=== PATIENT | male | born 1995 ===

== ENCOUNTER 2019-02-13 15:05 | Emergency (ER) | payer SELFPAY ==
[~2019-02-13] VITALS: Ht 182.9 cm; Wt 75.0 kg
[2019-02-13 15:24] VITALS: TEMP 99.4
[2019-02-13 15:58] LABS: COLLECTION METHOD CLEAN CATCH
[2019-02-13 16:09] LABS: MUCOUS Present /lpf; PH 5 (5-8); SQUAMOUS EPITHELIAL 0-2 /hpf; URINE APPEARANCE Hazy; URINE BACTERIA None Seen /hpf; URINE BILIRUBIN Negative (NEGATIVE); URINE BLOOD 1+ (NEGATIVE); URINE COLOR Yellow; URINE GLUCOSE Negative (NEGATIVE); URINE KETONE Negative (NEGATIVE); URINE LEUKOCYTE ESTERASE 2+ (NEGATIVE); URINE NITRATE Negative (NEGATIVE); URINE PROTEIN(semi-quant) 1+ (NEGATIVE)
[2019-02-13 16:48] LABS: BASO % 0.3 % (0.0-2.0); EOS % 0.6 % (0-4.0); GRAN # 2.1 (1.4-6.5); GRAN % 59.3 % (42.2-75.2); HEMATOCRIT 43.9 % (42.0-52.0); HEMOGLOBIN 14.6 g/dl (13.5-18.0); LYMPH % 28.9 % (20.0-51.0); MEAN CELL VOLUME 91 fl (80.0-100.0); MEAN CORPUSCULAR HEMOGLOBIN 30 pg (27.0-31.0); MEAN CORPUSCULAR HGB CONC 33 g/dl (33.0-37.0); MEAN PLATELET VOLUME 9.7 fl (7.4-10.4); MONO # 0.4 (0.1-0.6); MONO % 10.9 % (1.7-9.3); PLATELET COUNT 172 K/mm3 (130-400); RED BLOOD COUNT 4.81 M/mm3 (4.20-5.60); REDCELL DISTRIBUTION WIDTH-CV 13.7 % (11.5-14.5)
[2019-02-13 17:00] LABS: ALBUMIN 4.2 gm/dL (3.5-5.0); BILIRUBIN,TOTAL 0.4 mg/dL (0.0-1.0); C-REACTIVE PROTEIN 0.7 mg/dL (0.0-0.9); CALCIUM 8.7 mg/dL (8.4-10.2); CREATININE, serum 1.23 (0.66-1.25); POTASSIUM 4.1 mmol/L (3.4-5.0); TOTAL PROTEIN 7.8 gm/dL (6.4-8.2)
[2019-02-13 17:46] LABS: TRICYCLIC ANTIDEPRESS URINE NEGATIVE
[2019-02-13 17:57] LABS: ACETAMINOPHEN < 10 ug/mL (10-30)
[2019-02-13 17:58] LABS: ALCOHOL(ethanol),MEDICAL < 10 mg/dL; SALICYLATE < 1.0 mg/dL
[2019-02-13 18:10] LABS: HIV 1/2 Antibodies Non-Reactive; HIV-1p24 Antigen Preliminary Positive
[2019-02-13] MEDS ORDERED: CIPRO 500MG TA500 MG PO (22:41)
[2019-02-14 02:10] VITALS: BP 128/75; PULSE 90
== END 2019-02-14 02:10 ==
LOC: COL.ER 15:05
PROVIDERS: Emergency Medicine
DX: F32.9 Major depressive disorder, single episode, unspecified (principal); R45.851 Suicidal ideations; A54.9 Gonococcal infection, unspecified; N39.0 Urinary tract infection, site not specified; F17.210 Nicotine dependence, cigarettes, uncomplicated; Z21 Asymptomatic human immunodeficiency virus [HIV] infection status
CPT/HCPCS: A4216; J0696; J1885; J7030